=== PATIENT | male | born 1980 | race African-American/Black ===

== ENCOUNTER 2019-02-21 13:37 | Emergency (ER) | payer MEDICARE, MEDICAID ==
[~2019-02-21] VITALS: Ht 170.2 cm; Wt 71.1 kg
[2019-02-21] MEDS ORDERED: ALBUTEROL/IPRATROPIUM 2.5MG/0.5MG, 3 ML NPPB PRN (14:00)
[2019-02-21] MEDS ORDERED: ALBUTEROL SULFATE 2.5 MG/3 ML NPPB ONE ×2 (14:05→15:00)
[2019-02-21] MEDS ORDERED: ALBUTEROL SULFATE 2.5 MG/3 ML ONE ×2 (14:08→15:19)
--- NOTE | 2019-02-21 14:10 | NUR ---
PT PRESENTS TO ED WITH C/O SOB STARTING YESTERDAY, STATES HIS ASTHMA INHALER IS NOT PROVIDING RELIEF. PT PLACED ON ALL MONITORS. EKG DONE IN TRIAGE, PT PLACED ON OXYGEN AT 2L/MIN VIA NC IN TRIAGE. PT ABLE TO SPEAK IN FULL SENTENCES WITHOUT DIFFICULTY. RT AT BEDSIDE FOR BREATHING TX. CALL LIGHT IN REACH. S/O AT BEDSIDE.
[2019-02-21] MEDS ORDERED: ALBUTEROL/IPRATROPIUM 2.5MG/0.5MG, 3 ML NPPB ONE (15:00)
--- NOTE | 2019-02-21 15:07 | NUR ---
SBAR report received from RN, Den. Pt resting on [place], all monitors in place. ST noted at a rate of 111. Pt's friend at bedside. Pt to have 2nd breathing treatment.
--- NOTE | 2019-02-21 15:13 | NUR ---
PT A&O, RESPS EVEN AND UNLABORED. SPEAKING IN FULL SENTENCES. SINUS TACH RATE 100'S ON BUNCHER HAND, NO ECTOPY. SPO2 88% ON ROOM AIR WHEN TRIALED S/P FIRST RT TX, STATES HE IS FEELING A "LITTLE BETTER". RT PAGED FOR SECOND TX. REPORT GIVEN TO ALEXANDER FARR.
--- NOTE | 2019-02-21 15:28 | NUR ---
2nd treatment complete. Pt states that he's feeling much better. O2 off and pt's SpO2 is 92% on RA.
[2019-02-21 16:03] VITALS: BP 126/75
--- NOTE | 2019-02-21 16:17 | NUR ---
Dr. Manzano at bedside to discuss ED findings and POC. Pt electing to be discharged with prescriptions instead of receiving 3rd treatment.
== END 2019-02-21 16:47 | disposition home or self-care (01) ==
LOC: ED 16:33
DX: J45.41 Moderate persistent asthma with (acute) exacerbation (principal)
CPT/HCPCS: 71045; 93005; 94640; 99284; J7512; J7613

== ENCOUNTER 2019-03-29 11:40 | Emergency (ER) | payer MEDICARE, MEDICAID ==
[~2019-03-29] VITALS: Ht 170.2 cm; Wt 69.5 kg
--- NOTE | 2019-03-29 11:55 | NUR ---
EKG COMPLETED AT BS, GIVEN TO ERP.
[2019-03-29] MEDS ORDERED: methylPREDNISolone SOD SUCC 125 MG/2 ML ONE (12:17)
[2019-03-29] MEDS ORDERED: ALBUTEROL SULFATE 2.5 MG/3 ML ONE (12:20)
[2019-03-29] MEDS: ALBUTEROL SULFATE 2.5 MG/3 ML NPPB SCH ×2 (12:25→13:29)
[2019-03-29] MEDS ORDERED: MAGNESIUM SULFATE 1 GM in SODIUM CHLORIDE 0.9% 50 ML IV ONE (12:30)
[2019-03-29] MEDS ORDERED: methylPREDNISolone SOD SUCC 125 MG/2 ML IVP ONE (12:30)
[2019-03-29] MEDS ORDERED: MAGNESIUM SULFATE 1 GM/2 ML IV ONE (12:30)
--- NOTE | 2019-03-29 12:53 | NUR ---
MED REQUEST SENT TO PHARMACY, MAGNESIUM RECEIVED AND INFUSING NOW. PT STATES HE'S FEELING BETTER, BREATHING EASIER. VSS/UPDATED IN COMPUTER. CALL LIGHT WITHIN REACH.
[2019-03-29] MEDS ORDERED: ALBUTEROL 0.5%, 20ML ONE (13:23)
[2019-03-29] MEDS ORDERED: ALBUTEROL 0.5%, 20ML NPPBCONT ONE (14:00)
--- NOTE | 2019-03-29 14:00 | NUR ---
MAGNESIUM COMPLETED, PT FOR RECHECK.
--- NOTE | 2019-03-29 14:56 | NUR ---
PT REQUESTING TO GO HOME. ERP IN TO REASSESS. SATS AT 94% ON RA, PT AMBULATORY TO DISCHARGE DESK.
[2019-03-29 14:58] VITALS: BP 125/86
== END 2019-03-29 15:01 | disposition home or self-care (01) ==
LOC: ED 12:39
DX: J45.901 Unspecified asthma with (acute) exacerbation (principal); R06.03 Acute respiratory distress; F17.200 Nicotine dependence, unspecified, uncomplicated
CPT/HCPCS: 71045; 93005; 94640; 94644; 99285; J2930; J3475; J7613

== ENCOUNTER 2020-02-28 13:51 | Emergency (ER) | payer MEDICARE, MEDICAID ==
[~2020-02-28] VITALS: Ht 170.2 cm; Wt 73.3 kg
[~2020-02-28 13:51] MED LIST: AMLO10TA8 PO; IPRA4AER INH; LEVA15HF4 INH; METF500T17 PO
[2020-02-28] MEDS ORDERED: ALBUTEROL/IPRATROPIUM 2.5MG/0.5MG, 3 ML NPPB ONE (14:30)
--- NOTE | 2020-02-28 14:30 | NUR ---
PT TOLERATED BREATHING TREATMENT. MEDICATED PER ORDERS
[2020-02-28] MEDS ORDERED: ALBUTEROL/IPRATROPIUM 2.5MG/0.5MG, 3 ML ONE (14:42)
[2020-02-28] MEDS ORDERED: DEXAMETHASONE 4 MG TABLET ONE (14:52)
--- NOTE | 2020-02-28 15:30 | NUR ---
PT STATES HIS BREATHING IS BETTER AND CLEAR
--- NOTE | 2020-02-28 16:30 | NUR ---
PT RESTING WATCHING TV. VSS
[2020-02-28 17:23] VITALS: BP 135/82
--- NOTE | 2020-02-28 17:34 | NUR ---
Patient/Caregiver given discharge instructions and they have confirmed that they understand the instructions. Patient ambulatory with steady gait.
== END 2020-02-28 17:37 | disposition home or self-care (01) ==
LOC: ED 15:00
DX: J45.41 Moderate persistent asthma with (acute) exacerbation (principal); I10 Essential (primary) hypertension; E11.9 Type 2 diabetes mellitus without complications; F17.200 Nicotine dependence, unspecified, uncomplicated
CPT/HCPCS: 71045; 94640; 99283; J7512

== ENCOUNTER 2020-03-23 21:57 | Emergency (ER) | payer MEDICARE, MEDICAID ==
[~2020-03-23] VITALS: Ht 170.2 cm; Wt 70.0 kg
[2020-03-23 22:08] VITALS: BP 125/84
[2020-03-23] MEDS ORDERED: ALBUTEROL/IPRATROPIUM 2.5MG/0.5MG, 3 ML ONE (22:37)
[2020-03-23] MEDS ORDERED: ALBUTEROL/IPRATROPIUM 2.5MG/0.5MG, 3 ML NPPB ONE (23:00)
--- NOTE | 2020-03-23 23:22 | NUR ---
Pt stated he would like to leave [facility] because his family was outside waiting. Explained to pt that his room air sat was too low to safely discharge him home. Pt aware, signed [facility] paperwork and walked out of ER without assitance.
== END 2020-03-23 23:25 | disposition home or self-care (01) ==
LOC: ED 23:04
DX: J45.31 Mild persistent asthma with (acute) exacerbation (principal); R09.02 Hypoxemia; R00.0 Tachycardia, unspecified; Z76.0 Encounter for issue of repeat prescription; I10 Essential (primary) hypertension; E11.9 Type 2 diabetes mellitus without complications
CPT/HCPCS: 93005; 94640; 99283; J7512

== ENCOUNTER 2020-04-04 09:07 | Emergency (ER) | payer MEDICARE, MEDICAID ==
[~2020-04-04] VITALS: Ht 170.2 cm; Wt 76.1 kg
[2020-04-04] MEDS ORDERED: ALBUTEROL/IPRATROPIUM 2.5MG/0.5MG, 3 ML NPPB SCH (09:30)
[2020-04-04] MEDS ORDERED: ALBUTEROL SULFATE 2.5 MG/3 ML ONE (09:35)
[2020-04-04] MEDS ORDERED: ALBUTEROL/IPRATROPIUM 2.5MG/0.5MG, 3 ML ONE (09:41)
[2020-04-04] MEDS ORDERED: PLEASE ENTER WEIGHT MC SCH (10:00)
[2020-04-04 10:50] VITALS: BP 141/78
== END 2020-04-04 10:52 | disposition home or self-care (01) ==
LOC: ED 09:39
DX: J45.41 Moderate persistent asthma with (acute) exacerbation (principal); R00.0 Tachycardia, unspecified
CPT/HCPCS: 71045; 93005; 94640; 99283; J7512

== ENCOUNTER 2020-05-03 08:31 | Emergency (ER) | payer MEDICARE, MEDICAID ==
[~2020-05-03] VITALS: Ht 170.2 cm; Wt 73.4 kg
[2020-05-03] MEDS ORDERED: ALBUTEROL/IPRATROPIUM 2.5MG/0.5MG, 3 ML NEB ONE (09:30)
--- NOTE | 2020-05-03 09:30 | NUR ---
MEDICATED PER ORDERS.
[2020-05-03] MEDS ORDERED: ALBUTEROL/IPRATROPIUM 2.5MG/0.5MG, 3 ML ONE (09:44)
--- NOTE | 2020-05-03 10:35 | NUR ---
Patient/Caregiver given discharge instructions and they have confirmed that they understand the instructions. Patient ambulatory with steady gait.
[2020-05-03 10:36] VITALS: BP 137/98
== END 2020-05-03 10:38 | disposition home or self-care (01) ==
LOC: ED 09:16
DX: J45.31 Mild persistent asthma with (acute) exacerbation (principal); R00.0 Tachycardia, unspecified; I10 Essential (primary) hypertension; E11.9 Type 2 diabetes mellitus without complications; E03.9 Hypothyroidism, unspecified; Z87.891 Personal history of nicotine dependence
CPT/HCPCS: 71045; 94640; 99283; J7512

== ENCOUNTER 2020-05-03 21:59 | Emergency (ER) | payer MEDICARE, MEDICAID ==
[~2020-05-03] VITALS: Ht 170.2 cm; Wt 73.0 kg
[2020-05-03 22:05] VITALS: BP 150/100
--- NOTE | 2020-05-03 22:17 | NUR ---
assumed care of pt. pt reports that he was seen here this AM for an asthma attack and was given Rx that he did not fill and has not lost. pt reports that he just wants a reprinted copy of his Rx from his previous visit and that he "has people waiting for him and that if this is going to take hours and hours I need to leave". pt uncooperative with physical assessment or questioning. attempted to explain to pt that this is a new visit and pt needs to be assessed, and pt states "this is not a new visit, I just want my prescriptions" attempted to inform pt that he will need to be seen by a provider as this is a new visit and pt states "this is not a new visit, just give me my prescriptions because I had to get a ride here and I have people waiting for me"
--- NOTE | 2020-05-03 23:05 | NUR ---
this pt was D/C by another staff member
== END 2020-05-03 22:58 ==
LOC: ED 22:30
DX: J45.909 Unspecified asthma, uncomplicated (principal); Z76.0 Encounter for issue of repeat prescription; R00.0 Tachycardia, unspecified; F17.210 Nicotine dependence, cigarettes, uncomplicated; E11.9 Type 2 diabetes mellitus without complications
CPT/HCPCS: 94640; 99281

== ENCOUNTER 2020-05-24 14:34 | Emergency (ER) | payer MEDICARE, MEDICAID ==
[~2020-05-24] VITALS: Ht 170.2 cm; Wt 72.6 kg
[2020-05-24] MEDS ORDERED: ALBUTEROL/IPRATROPIUM 2.5MG/0.5MG, 3 ML NPPB ONE (15:00)
[2020-05-24] MEDS ORDERED: ALBUTEROL/IPRATROPIUM 2.5MG/0.5MG, 3 ML ONE (15:02)
--- NOTE | 2020-05-24 15:07 | NUR ---
walked to xr and back. also c/o atraumatic r hip pain. neb tx, prednisone per dec. as
[2020-05-24 15:39] VITALS: BP 134/83
--- NOTE | 2020-05-24 15:39 | NUR ---
noticeably less insp/exp wheezing coarse breath sounds after neb tx. oob to bathroom. sts feels better. as
--- NOTE | 2020-05-24 16:21 | NUR ---
era in room plan for dc. as
== END 2020-05-24 17:05 | disposition home or self-care (01) ==
LOC: ED 16:23
DX: J45.41 Moderate persistent asthma with (acute) exacerbation (principal); R00.0 Tachycardia, unspecified; R06.02 Shortness of breath; F17.200 Nicotine dependence, unspecified, uncomplicated
CPT/HCPCS: 71046; 93005; 94640; 99283; J7512

== ENCOUNTER 2020-08-02 13:36 | Emergency (ER) | payer MEDICARE, MEDICAID ==
[~2020-08-02] VITALS: Ht 170.2 cm; Wt 73.3 kg
[2020-08-02 13:48] VITALS: BP 161/98
[2020-08-02] MEDS ORDERED: METHOCARBAMOL 750 MG TABLET PO ONE (14:30)
[2020-08-02] MEDS ORDERED: ALBUTEROL/IPRATROPIUM 2.5MG/0.5MG, 3 ML NPPB ONE (14:30)
[2020-08-02] MEDS ORDERED: METHOCARBAMOL 750 MG TABLET ONE (14:37)
[2020-08-02] MEDS ORDERED: ALBUTEROL/IPRATROPIUM 2.5MG/0.5MG, 3 ML ONE (14:38)
--- NOTE | 2020-08-02 14:54 | NUR ---
PT STATES POSITIVE RELIEF OF RESPIRATORY SYMPTOMS. NECK IS STILL SORE. PT EDUCATED THAT MEDICATIONS WILL WORK IN TIME
== END 2020-08-02 15:04 | disposition home or self-care (01) ==
LOC: ED 14:55
DX: J45.901 Unspecified asthma with (acute) exacerbation (principal); M54.2 Cervicalgia; I10 Essential (primary) hypertension; E11.9 Type 2 diabetes mellitus without complications
CPT/HCPCS: 94640; 99283; J7512

== ENCOUNTER 2020-09-16 06:16 | Emergency (ER) | payer MEDICARE, MEDICAID ==
[~2020-09-16] VITALS: Ht 170.2 cm; Wt 73.9 kg
[~2020-09-16 06:16] MED LIST changes: +AMLO-211 PO; -AMLO10TA8 PO
[2020-09-16 06:23] VITALS: BP 135/80
[2020-09-16] MEDS ORDERED: IBUPROFEN 800 MG TABLET PO ONE (07:00)
[2020-09-16] MEDS ORDERED: ONDANSETRON ODT 4 MG PO ONE (07:00)
[2020-09-16] MEDS ORDERED: ONDANSETRON ODT 4 MG ONE (07:13)
== END 2020-09-16 08:34 | disposition home or self-care (01) ==
LOC: ED 08:00
DX: S40.011A Contusion of right shoulder, initial encounter (principal); S70.01XA Contusion of right hip, initial encounter; E11.9 Type 2 diabetes mellitus without complications; I10 Essential (primary) hypertension; J45.909 Unspecified asthma, uncomplicated; Z88.0 Allergy status to penicillin; W01.0XXA Fall on same level from slipping, tripping and stumbling without subsequent striking against object, initial encounter; Y93.89 Activity, other specified; Y92.410 Unspecified street and highway as the place of occurrence of the external cause; Y99.8 Other external cause status
CPT/HCPCS: 73030; 73502; 99284; Q0162

== ENCOUNTER 2020-11-11 12:01 | Emergency (ER) | payer MEDICARE, MEDICAID ==
[~2020-11-11] VITALS: Ht 170.2 cm; Wt 74.4 kg
[2020-11-11 12:05] VITALS: BP 162/104
--- NOTE | 2020-11-11 12:40 | NUR ---
PT STATES "I NEED MY TREATMENT. AM I GOING TO GET A TREATMENT". PULSE OX 96-97%. PT SPEAKING IN FULL SENTENCES, NO ACUTE DISTRESS
--- NOTE | 2020-11-11 13:00 | NUR ---
LATE ENTRY FOR 1245 PT STATES: "I'M GOING TO ANOTHER HOSPITAL. I DON'T NEED TO BE WAITING ALL DAY TO BE SEEN." THIS TECH WATCHED THE PT WALK OUT OF THE ED.
== END 2020-11-11 13:07 | disposition left against medical advice (07) ==
LOC: ED 13:00
DX: R06.02 Shortness of breath (principal); Z53.21 Procedure and treatment not carried out due to patient leaving prior to being seen by health care provider
CPT/HCPCS: 99281

== ENCOUNTER 2021-01-04 07:11 | Emergency (ER) | payer MEDICARE, MEDICAID ==
[~2021-01-04] VITALS: Ht 170.2 cm; Wt 71.2 kg
--- NOTE | 2021-01-04 07:30 | NUR ---
PT ARRIVED COMPLAINING OF AB PAIN W/RECTAL BLEED AND ASTHMA EXACERBATION. HERON PONCE AT BEDSIDE. PT A&O X4, 94% ON RN, SPEAKING IN FULL SENTENCES, CMS INTACT. VSS.
[2021-01-04] MEDS ORDERED: ALBUTEROL/IPRATROPIUM 2.5MG/0.5MG, 3 ML ONE (07:45)
[2021-01-04 07:48] LABS: BASOPHILS % (AUTO) 1 % (0-1); EOSINOPHILS % (AUTO) 3 % (1-7); LYMPHOCYTES % (AUTO) 22 % (22-44); MEAN CORPUSCULAR HEMOGLOBIN 31.4 pg (27.5-34.5); MEAN CORPUSCULAR HGB CONC 34.4 g/dL (33.2-36.2); MONOCYTES % (AUTO) 10 % (2-9); NEUTROPHILS % (AUTO) 63 % (42-75); PLATELET COUNT 281 x10^3/uL (130-400); RED BLOOD COUNT 4.69 x10^6/uL (4.38-5.82); RED CELL DISTRIBUTION WIDTH 13.9 % (9.4-14.8)
[2021-01-04 07:59] LABS: ALANINE AMINOTRANSFERASE 35 U/L (12-78); ALBUMIN 3.9 g/dL (3.4-5.0); ANION GAP 6 mmol/L (5-15); CALCIUM 9.4 mg/dL (8.5-10.1); CHLORIDE 104 mmol/L (98-107); CREATININE 0.93 mg/dL (0.7-1.3)
[2021-01-04] MEDS ORDERED: SODIUM CHLORIDE 0.9% 1,000ML IVBOLUS ONE (08:00)
[2021-01-04] MEDS ORDERED: MAALOX/HYOSCYAMINE/LIDOCAINE 45 ML BTL PO ONE (08:00)
[2021-01-04] MEDS ORDERED: ALBUTEROL/IPRATROPIUM 2.5MG/0.5MG, 3 ML NPPB ONE (08:00)
[2021-01-04 08:01] LABS: ALKALINE PHOSPHATASE 67 U/L (45-117); BILIRUBIN,TOTAL 0.4 mg/dL (0.2-1.0); TOTAL PROTEIN 7.5 g/dL (6.4-8.2)
[2021-01-04] MEDS ORDERED: MAALOX/HYOSCYAMINE/LIDOCAINE 45 ML BTL ONE (08:03)
[2021-01-04 08:10] LABS: MICROSCOPIC NOT IND
--- NOTE | 2021-01-04 08:16 | NUR ---
DUO NEB COMPLETE, LUNG SOUNDS ARE IMPROVED W/LESS BILAT WHEEZING. MEDS GIVEN PER DEC. WENT OVER POC W/PT. PT IS NOW LYING DOWN IN BED RESTING WITH EYES CLOSED.
[2021-01-04 08:19] LABS: MD SCAN
[2021-01-04] MEDS ORDERED: FLUT12HF2 INH (08:36)
[2021-01-04] MEDS ORDERED: MONT5TAB6 PO (08:36)
[2021-01-04] MEDS ORDERED: LEVO25TA4 PO (08:37)
--- NOTE | 2021-01-04 08:50 | NUR ---
ROAD TEST DONE, O2 SAT 94-95%. NOTIFIED.
[2021-01-04 08:58] VITALS: BP 124/74
== END 2021-01-04 09:08 | disposition home or self-care (01) ==
LOC: ED 07:24
DX: J45.41 Moderate persistent asthma with (acute) exacerbation (principal); R10.84 Generalized abdominal pain; R06.02 Shortness of breath; R11.10 Vomiting, unspecified; E11.9 Type 2 diabetes mellitus without complications; I10 Essential (primary) hypertension; R00.0 Tachycardia, unspecified
CPT/HCPCS: 36415; 71045; 80053; 81003; 83690; 85025; 94640; 96360; 99284; J7030; J7512

== ENCOUNTER 2021-02-15 08:50 | Inpatient (IN) | payer MEDICARE, MEDICAID ==
[~2021-02-15] VITALS: Ht 170.2 cm; Wt 66.0 kg
[~2021-02-15 08:50] MED LIST changes: +FLUT12HF2 INH; +LEVO25TA4 PO; +MONT5TAB6 PO
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
[2021-02-15] MEDS ORDERED: ALBUTEROL SULFATE 2.5 MG/3 ML NPPB ONE ×3 (09:00→10:30)
[2021-02-15] MEDS ORDERED: ALBUTEROL/IPRATROPIUM 2.5MG/0.5MG, 3 ML NEB ONE ×2 (09:00→12:00)
[2021-02-15] MEDS ORDERED: ALBUTEROL/IPRATROPIUM 2.5MG/0.5MG, 3 ML ONE ×2 (09:15→11:36)
[2021-02-15] MEDS ORDERED: ALBUTEROL SULFATE 2.5 MG/3 ML ONE ×2 (09:15→10:23)
--- NOTE | 2021-02-15 09:24 | NUR ---
PT GIVEN FOOD AND MEDICATED PER EMAR. PT SITTING UP IN BED TAKING BREATHING TREATMENT. VSS. FIGUEROA.
--- NOTE | 2021-02-15 09:51 | NUR ---
pt asleep with even and unlabored respirations. repeat breathing treatment at 1030.vss
--- NOTE | 2021-02-15 10:19 | NUR ---
GIRLFRIEND JACE CALLED. PER PATIENT OKAY TO GIVE INFORMATION
--- NOTE | 2021-02-15 10:30 | NUR ---
PT SITTING UP IN BED. BREATHING TREATMENT IN PLACE. VSS. FIGUEROA.
--- NOTE | 2021-02-15 11:33 | NUR ---
PT ASLEEP WITH EVEN AND UNLABORED RESPIRATIONS. WHILE SLEEPING PT SPO2 DESAT TO 88. 2 L NC PLACED ON PT.
--- NOTE | 2021-02-15 11:40 | NUR ---
PT SITTING UP IN BED WITH BREATHING TREATMENT. VSS.
--- NOTE | 2021-02-15 11:59 | NUR ---
TASK RN NOTE: PT PLACED BACK ON NC WHEN SPO2 MEASUREMENT IS 85% ON RA WHILE RESTING WITH EYES CLOSED. EDMD MADE AWARE OF ROOM SATURATION, RN REQUESTS CXR. RN ENCOURAGED PT TO TAKE A FEW DEEP BREATHS. NAD NOTED AT THIS TIME. AWAITING FURTHER ORDERS.
[2021-02-15 13:09] LABS: BASOPHILS % (AUTO) 0 % (0-1); EOSINOPHILS % (AUTO) 0 % (1-7); LYMPHOCYTES % (AUTO) 7 % (22-44); MEAN CORPUSCULAR HEMOGLOBIN 31.5 pg (27.5-34.5); MEAN CORPUSCULAR HGB CONC 33.6 g/dL (33.2-36.2); MONOCYTES % (AUTO) 2 % (2-9); NEUTROPHILS % (AUTO) 91 % (42-75); PLATELET COUNT 249 x10^3/uL (130-400); RED BLOOD COUNT 4.91 x10^6/uL (4.38-5.82); RED CELL DISTRIBUTION WIDTH 15.1 % (9.4-14.8)
[2021-02-15 13:21] LABS: MD NO
[2021-02-15 13:30] LABS: ALANINE AMINOTRANSFERASE 55 U/L (12-78); ALBUMIN 3.9 g/dL (3.4-5.0); ANION GAP 13 mmol/L (5-15); CALCIUM 8.6 mg/dL (8.5-10.1); CHLORIDE 107 mmol/L (98-107); CREATININE 0.83 mg/dL (0.7-1.3)
[2021-02-15 13:32] LABS: ALKALINE PHOSPHATASE 78 U/L (45-117); BILIRUBIN,TOTAL 0.3 mg/dL (0.2-1.0); TOTAL PROTEIN 7.4 g/dL (6.4-8.2)
--- NOTE | 2021-02-15 13:36 | NUR ---
PT ASLEEP. VSS. NADN.
--- NOTE | 2021-02-15 14:00 | NUR ---
DR. SINGER TO BEDSIDE FOR EVALUATION FOR ADMIT. VSS. FIGUEROA.
[2021-02-15 14:21] LABS: AMPHETAMINE SCREEN, URINE Positive (Negative); BARBITURATE SCREEN, URINE Negative (Negative); BENZODIAZEPINE SCREEN, URINE Negative (Negative); CANNABINOID SCREEN, URINE Negative (Negative); COCAINE SCREEN, URINE Positive (Negative); METHADONE SCREEN, URINE Negative (Negative); OPIATE SCREEN, URINE Negative (Negative)
[2021-02-15] MEDS: ENOXAPARIN 40 MG/0.4 ML SQ SCH (14:30)
[2021-02-15] MEDS ORDERED: POTASSIUM CHLORIDE 20 MEQ TAB.ER.PRT PO ONE (14:30)
[2021-02-15] MEDS ORDERED: LORazepam 0.5MG TABLET PO PRN (14:30)
[2021-02-15] MEDS ORDERED: ONDANSETRON 2MG/ML, 2ML IVPush PRN (14:30)
[2021-02-15] MEDS ORDERED: GUAIFENESIN/DM 200-20MG, 10ML UDC PO PRN (14:30)
[2021-02-15] MEDS ORDERED: hydrALAzine 20 MG/ML, 1ML IVPush PRN (14:30)
[2021-02-15] MEDS ORDERED: LORazepam 2 MG/ML, 1ML IV PRN ×3 (14:30)
[2021-02-15] MEDS ORDERED: MAGNESIUM SULFATE PMX 2GM/50ML 50 ML IV ONE (14:30)
[2021-02-15] MEDS: ALBUTEROL SULFATE 2.5 MG/3 ML NPPB SCH ×2 (14:30→20:45)
--- NOTE | 2021-02-15 14:40 | NUR ---
report called to fabiola clemente.
[2021-02-15 15:23] LABS: FREE T4 (FREE THYROXINE) 0.94 ng/dL (0.76-1.46)
[2021-02-15 15:25] VITALS: BP 136/87
[2021-02-15] MEDS: methylPREDNISolone SOD SUCC 40 MG/ML IVPush SCH ×2 (15:52→21:36)
[2021-02-15] MEDS: DIAZEPAM 10 MG TABLET PO SCH ×2 (15:53→21:36)
[2021-02-15] MEDS: CEFTRIAXONE 2 GM in DEXTROSE 5% 50 ML IVPB SCH (17:46)
[2021-02-15] MEDS: INSULIN LISPRO 100 UNITS/ML, PEN SQ-INSULIN SCH ×2 (17:46→20:17)
[2021-02-15 18:59] VITALS: BP 141/92
[2021-02-15] MEDS: MONTELUKAST 5 MG TAB.CHEW PO SCH (20:16)
[2021-02-15] MEDS: LORazepam 1MG TABLET PO PRN (20:16)
[2021-02-15] MEDS: SODIUM CHLORIDE FLUSH 10ML SYR IVF SCH (20:17)
[2021-02-15] MEDS ORDERED: TRAZODONE 50MG TABLET PO PRN (21:00)
[2021-02-15] MEDS: ACETAMINOPHEN 325 MG TABLET PO PRN (23:42)
[2021-02-16 01:41] VITALS: BP 124/76
[2021-02-16] MEDS: DIAZEPAM 10 MG TABLET PO SCH ×4 (03:59→20:56)
[2021-02-16] MEDS: methylPREDNISolone SOD SUCC 40 MG/ML IVPush SCH ×4 (04:16→20:58)
[2021-02-16] MEDS: ALBUTEROL SULFATE 2.5 MG/3 ML NPPB SCH ×2 (04:30→07:40)
[2021-02-16 05:51] LABS: CHLORIDE 104 mmol/L (98-107)
[2021-02-16 05:55] LABS: BASOPHILS % (AUTO) 0 % (0-1); EOSINOPHILS % (AUTO) 0 % (1-7); LYMPHOCYTES % (AUTO) 10 % (22-44); MEAN CORPUSCULAR HEMOGLOBIN 31.3 pg (27.5-34.5); MEAN CORPUSCULAR HGB CONC 33.7 g/dL (33.2-36.2); MEAN PLATELET VOLUME 7.6 fL (7.4-10.4); MONOCYTES % (AUTO) 4 % (2-9); NEUTROPHILS % (AUTO) 86 % (42-75); PLATELET COUNT 275 x10^3/uL (130-400); RED BLOOD COUNT 5.09 x10^6/uL (4.38-5.82); RED CELL DISTRIBUTION WIDTH 15.1 % (9.4-14.8)
[2021-02-16 06:02] LABS: MD NO
[2021-02-16 06:03] LABS: ALANINE AMINOTRANSFERASE 55 U/L (12-78); ALKALINE PHOSPHATASE 83 U/L (45-117); ANION GAP 10 mmol/L (5-15); BILIRUBIN,TOTAL 0.7 mg/dL (0.2-1.0); CALCIUM 8.8 mg/dL (8.5-10.1); CHOL/HDL RATIO 2.6; CHOLESTEROL, TOTAL 255 mg/dL (140-239); CREATININE 0.95 mg/dL (0.7-1.3); HDL CHOL % 38 % (26-37); HDL CHOLESTEROL (DIRECT) 98 mg/dL (40-60); LDL CHOLESTEROL,CALCULATED 143 mg/dL (54-169); LDL/HDL RATIO 1.5 (0.5-3.0); TOTAL PROTEIN 7.9 g/dL (6.4-8.2); TRIGLYCERIDES 71 mg/dL (50-200); VLDL CHOLESTEROL 14 mg/dL (0-25)
[2021-02-16] MEDS: LEVOTHYROXINE 50 MCG TABLET PO SCH (06:22)
[2021-02-16] MEDS: LORazepam 1MG TABLET PO PRN ×4 (06:22→15:26)
[2021-02-16 07:08] VITALS: BP 156/101
[2021-02-16] MEDS: INSULIN LISPRO 100 UNITS/ML, PEN SQ-INSULIN SCH ×4 (08:07→20:36)
[2021-02-16] MEDS: FLUTICASONE/VILANTEROL 200-25MCG/INH INH SCH (09:00)
[2021-02-16] MEDS ORDERED: THIAMINE 200 MG in SODIUM CHLORIDE 0.9% 50 ML IV SCH (09:00)
[2021-02-16] MEDS ORDERED: AMLODIPINE 5 MG TABLET PO SCH (09:00)
[2021-02-16] MEDS: SODIUM CHLORIDE FLUSH 10ML SYR IVF SCH ×2 (09:11→19:23)
[2021-02-16] MEDS ORDERED: METOPROLOL 1 MG/ML, 5ML ONE (09:46)
[2021-02-16] MEDS ORDERED: METOPROLOL 1 MG/ML, 5ML IVPush ONE (10:00)
[2021-02-16] MEDS: ALBUTEROL/IPRATROPIUM 2.5MG/0.5MG, 3 ML NPPB SCH ×3 (10:43→20:25)
[2021-02-16 13:28] VITALS: BP 170/95
[2021-02-16] MEDS: METOPROLOL TARTRATE 25 MG TAB PO SCH ×2 (13:37→20:56)
[2021-02-16 14:01] VITALS: BP 137/97
[2021-02-16] MEDS: ENOXAPARIN 40 MG/0.4 ML SQ SCH (14:29)
[2021-02-16] MEDS: INSULIN LISPRO 100 UNIT/ML, 3ML VIAL SQ-INSULIN SCH (16:30)
[2021-02-16] MEDS: CEFTRIAXONE 2 GM in DEXTROSE 5% 50 ML IVPB SCH (17:39)
[2021-02-16 18:35] VITALS: BP 134/84
[2021-02-16] MEDS: MONTELUKAST 5 MG TAB.CHEW PO SCH (19:30)
[2021-02-16 21:00] VITALS: BP 145/93
[2021-02-16] MEDS ORDERED: INSULIN GLARGINE 100 UNITS/ML, PEN SQ-INSULIN SCH (21:00)
[2021-02-17 01:34] VITALS: BP 135/85
[2021-02-17] MEDS: ACETAMINOPHEN 325 MG TABLET PO PRN (01:46)
[2021-02-17] MEDS: LORazepam 1MG TABLET PO PRN ×2 (01:46→06:17)
[2021-02-17] MEDS: methylPREDNISolone SOD SUCC 40 MG/ML IVPush SCH (04:17)
[2021-02-17] MEDS: LEVOTHYROXINE 50 MCG TABLET PO SCH (04:17)
[2021-02-17] MEDS: DIAZEPAM 10 MG TABLET PO SCH (04:17)
[2021-02-17] MEDS: METOPROLOL TARTRATE 25 MG TAB PO SCH (04:18)
[2021-02-17 04:19] VITALS: BP 125/87
[2021-02-17] MEDS: ALBUTEROL/IPRATROPIUM 2.5MG/0.5MG, 3 ML NPPB SCH (06:57)
[2021-02-17] MEDS: FLUTICASONE/VILANTEROL 200-25MCG/INH INH SCH (06:57)
[2021-02-17] MEDS: INSULIN LISPRO 100 UNIT/ML, 3ML VIAL SQ-INSULIN SCH (07:00)
[2021-02-17 07:10] VITALS: BP 137/94
[2021-02-17] MEDS: INSULIN LISPRO 100 UNITS/ML, PEN SQ-INSULIN SCH (07:12)
[2021-02-17] MEDS ORDERED: AMLO-150 PO (08:11)
[2021-02-17] MEDS ORDERED: METO25TA35 PO (08:11)
[2021-02-17] MEDS ORDERED: FLUT1BLS INH (08:11)
[2021-02-17] MEDS ORDERED: CEFD300C37 PO (08:11)
[2021-02-17] MEDS ORDERED: PRED20TA PO (08:11)
== END 2021-02-17 09:31 | disposition home or self-care (01) | DRG 189 ==
LOC: ED 10:12 → INTOOBSV 13:37 → EDIP 13:37 → OBSVTOIN 13:37 → 4WST 15:03 → DCLOUNGE 02-17 09:08
PROVIDERS: ADMIT Hospitalist; ATTEND Hospitalist
DX: J96.01 Acute respiratory failure with hypoxia (principal); J45.901 Unspecified asthma with (acute) exacerbation; I47.1 Supraventricular tachycardia; F10.239 Alcohol dependence with withdrawal, unspecified; J20.9 Acute bronchitis, unspecified; E03.9 Hypothyroidism, unspecified; E11.9 Type 2 diabetes mellitus without complications; F14.10 Cocaine abuse, uncomplicated; F17.210 Nicotine dependence, cigarettes, uncomplicated; R63.4 Abnormal weight loss; R79.89 Other specified abnormal findings of blood chemistry; I10 Essential (primary) hypertension; K52.9 Noninfective gastroenteritis and colitis, unspecified; Z82.5 Family history of asthma and other chronic lower respiratory diseases; Z83.3 Family history of diabetes mellitus; Z79.899 Other long term (current) drug therapy; Z79.891 Long term (current) use of opiate analgesic; Z79.01 Long term (current) use of anticoagulants; Z84.1 Family history of disorders of kidney and ureter; Z68.22 Body mass index [BMI] 22.0-22.9, adult; Z88.0 Allergy status to penicillin; Z88.1 Allergy status to other antibiotic agents
CPT/HCPCS: 36415; 71045; 80053; 80061; 80307; 80320; 82962; 83036; 83690; 83735; 84100; 84439; 84443; 85025; 93005; 94640; G0378; J0696; J3411; J7613; G0480; J0360; J1815; J2060; J2920; J3475; J7512

== ENCOUNTER 2021-03-07 10:46 | Emergency (ER) | payer MEDICARE, MEDICAID ==
[~2021-03-07] VITALS: Ht 170.2 cm; Wt 66.5 kg
[~2021-03-07 10:46] MED LIST changes: +AMLO-150 PO; +CEFD300C37 PO; +FLUT1BLS INH; +METO25TA35 PO; +PRED20TA PO
[2021-03-07 10:49] VITALS: BP 129/84
[2021-03-07] MEDS ORDERED: ALBUTEROL SULFATE 2.5 MG/3 ML ONE (11:20)
[2021-03-07] MEDS ORDERED: ALBUTEROL SULFATE 2.5 MG/3 ML NPPB ONE (11:30)
--- NOTE | 2021-03-07 11:42 | NUR ---
PT STATES "I FEEL A LOT BETTER"
== END 2021-03-07 11:51 | disposition home or self-care (01) ==
LOC: ED 11:20
DX: J45.41 Moderate persistent asthma with (acute) exacerbation (principal); I10 Essential (primary) hypertension; E11.9 Type 2 diabetes mellitus without complications
CPT/HCPCS: 94640; 99283; J7512; J7613

== ENCOUNTER 2021-03-31 02:22 | Emergency (ER) | payer MEDICARE, MEDICAID ==
[~2021-03-31] VITALS: Ht 170.2 cm; Wt 66.1 kg
[2021-03-31 02:26] VITALS: BP 132/89
--- NOTE | 2021-03-31 02:37 | NUR ---
PT. C/O DIFFUSE ABD PAIN AND DIARRHEA X 3 DAYS. STATES TUMS ONLY RELIEVE PAIN FOR 15 MIN AND THEN IT COMES BACK. DENIES N/V. PT. ALSO C/O FEELING SOB. NO RESP DISTRESS NOTED. PT. SPEAKING IN FULL SENTENCES. HX ASTHMA; INHALERS NOT HELPING PER PT. DENIES ABD SX HX.
[2021-03-31] MEDS ORDERED: ALBUTEROL/IPRATROPIUM 2.5MG/0.5MG, 3 ML NPPB ONE (03:00)
[2021-03-31] MEDS ORDERED: MAALOX/HYOSCYAMINE/LIDOCAINE 45 ML BTL PO ONE (03:00)
[2021-03-31] MEDS ORDERED: MAALOX/HYOSCYAMINE/LIDOCAINE 45 ML BTL ONE (03:04)
[2021-03-31] MEDS ORDERED: ALBUTEROL/IPRATROPIUM 2.5MG/0.5MG, 3 ML ONE (03:05)
[2021-03-31 03:12] LABS: BASOPHILS % (AUTO) 1 % (0-1); EOSINOPHILS % (AUTO) 3 % (1-7); LYMPHOCYTES % (AUTO) 27 % (22-44); MEAN CORPUSCULAR HEMOGLOBIN 32.1 pg (27.5-34.5); MEAN CORPUSCULAR HGB CONC 34.3 g/dL (33.2-36.2); MEAN PLATELET VOLUME 6.9 fL (7.4-10.4); MONOCYTES % (AUTO) 11 % (2-9); NEUTROPHILS % (AUTO) 57 % (42-75); PLATELET COUNT 291 x10^3/uL (130-400); RED BLOOD COUNT 4.17 x10^6/uL (4.38-5.82); RED CELL DISTRIBUTION WIDTH 14.3 % (9.4-14.8)
[2021-03-31 03:20] LABS: ALANINE AMINOTRANSFERASE 52 U/L (12-78); ALBUMIN 3.3 g/dL (3.4-5.0); ANION GAP 10 mmol/L (5-15); CALCIUM 9.6 mg/dL (8.5-10.1); CHLORIDE 103 mmol/L (98-107); CREATININE 0.98 mg/dL (0.7-1.3)
[2021-03-31 03:22] LABS: ALKALINE PHOSPHATASE 56 U/L (45-117); BILIRUBIN,TOTAL 0.2 mg/dL (0.2-1.0); TOTAL PROTEIN 6.4 g/dL (6.4-8.2)
[2021-03-31] MEDS ORDERED: FAMOTIDINE 20 MG TABLET ONE (04:22)
[2021-03-31] MEDS ORDERED: FAMOTIDINE 20 MG TABLET PO ONE (04:30)
== END 2021-03-31 04:27 | disposition home or self-care (01) ==
LOC: ED 02:38
DX: K21.9 Gastro-esophageal reflux disease without esophagitis (principal); J45.901 Unspecified asthma with (acute) exacerbation; F17.210 Nicotine dependence, cigarettes, uncomplicated; Z72.9 Problem related to lifestyle, unspecified; R94.31 Abnormal electrocardiogram [ECG] [EKG]
CPT/HCPCS: 36415; 71045; 80053; 83690; 85025; 93005; 94640; 99285; 99406